=== PATIENT | male | born 1995 | race American Indian/Alaskan Native ===

== ENCOUNTER 2017-05-19 07:13 | Outpatient (CLI) | payer BC ==
--- NOTE | 2017-05-19 10:21 | Ultrasound Report ---
ULTRASOUND ABDOMEN LIMITED History: Seroma of the skin. Findings: Targeted transabdominal grayscale ultrasound was performed at an area of concern in the left lower quadrant. The images demonstrate nonspecific subcutaneous tissues. There is no evidence for mass, fluid collection or seroma. Impression: No abnormality identified.
== END 2017-05-19 07:14 | disposition home or self-care (01) ==
LOC: US 07:13
PROVIDERS: ATTEND Specialist
DX: L76.34 Postprocedural seroma of skin and subcutaneous tissue following other procedure (principal)
CPT/HCPCS: 76705